=== PATIENT | female | born 1985 | race Caucasian/White ===

== ENCOUNTER 2018-12-27 17:13 | Outpatient (CLI) | payer MEDICAID ==
[~2018-12-27] VITALS: Ht 157.5 cm; Wt 85.2 kg
[2018-12-27 17:28] VITALS: Ht 157.5 cm; Wt 85.2 kg
--- NOTE | 2018-12-27 18:07 | PN ---
Triage Information Date/Time Reason for visit: Weeks of Gestation 39.1 /Para 1 Assessment/Plan Subjective: 33 year-old G1 at 39.1 weeks gestation presents with complaints of cough/congestion/sore throat/body aches x2 days. Positive sick contacts. Fever noted last p.m. Has not been taking Tylenol. Objective: Vitals: Stable and within normal limits General: No apparent distress HEENT: No erythema, ears nontender to palpation Abdomen: Gravid Pulmonary: Auscultation bilaterally Cardiac: Rate and rhythm Extremities: nontender to palpation Electronic moniter: Category 1 [place] no contractions Assessment/Plan: 1. Possible URI-patient counseled on humidifier, Tylenol, gargling with salt water. This is likely a viral infection. She was advised that in the emergency room she will will be valuated further including a culture of the throat to rule out strep. Disposition: discharge to ER for work up RIC HOFFMAN MD Dec 27, 2018 18:07
--- NOTE | 2018-12-27 18:07 | TRIAGE ---
OB Triage Datetime Report Generated by CPN: 12/27/2018 18:06 Datetime: 12/27/2018 18:04 Stage of : OB Triage Maternal Assessment Level of Consciousness: Keenly Alert, Responsive DTR's/Clonus: DTRs 1+ Headache: Denies Breath Sounds, Left: Clear and Equal Breath Sounds, Right: Clear and Equal Nausea/Vomiting: Denies RUQ Epigastric Pain: Denies Labor Evaluation Frequency: NONE Monitor Mode: External Resting Tone [place]: Relaxed Heart Rate FHR Baseline Rate: 150 Monitor Mode: External US Variability: Moderate 6-25 bpm Accelerations: 15X15 Decelerations: None Category: Category I Pain Assessment Pain Scale: 5 Pain Presence: Constant Pain Type: Ache Pain Goal: 3 Membrane Status: Intact Datetime: 12/27/2018 17:34 Vaginal Exam Dilatation (cms): 1.0 Effacement (%): 50 Station: -3 Exam By: krystyna gonzales Vaginal Bleeding: None Cervix, Consistency: Soft Cervix, Position: Midposition Presentation 'A': Cephalic Datetime: 12/27/2018 17:30 Maternal Assessment Level of Consciousness: Keenly Alert, Responsive DTR's/Clonus: DTRs 1+ Headache: Denies Blurred Vision: No Respiratory Effort: Unlabored Breath Sounds, Left: Clear and Equal Breath Sounds, Right: Clear and Equal Nausea/Vomiting: Denies RUQ Epigastric Pain: Denies Facial Edema: None Labor Evaluation Frequency: NONE Monitor Mode: External Resting Tone [place]: Relaxed Heart Rate FHR Baseline Rate: 150 Monitor Mode: External US Variability: Moderate 6-25 bpm Accelerations: 15X15 Decelerations: None Category: Category I Pain Assessment Pain Scale: 5 Pain Presence: Constant Pain Type: Ache Pain Goal: 3 Pain Assessment Comments: BODY ACHE Membrane Status: Intact Datetime: 12/27/2018 17:27 EGA: 39.1 Datetime: 12/27/2018 17:25 Assessment Type: Triage Maternal Assessment Level of Consciousness: Keenly Alert, Responsive DTR's/Clonus: DTRs 2+; No Clonus Headache: Denies Blurred Vision: No Respiratory Effort: Unlabored; Regular Rhythm; Equal Expansion Breath Sounds, Left: Clear and Equal Breath Sounds, Right: Clear and Equal Nausea/Vomiting: Denies RUQ Epigastric Pain: Denies Lower Extremities Edema: None Degree: None Upper Extremities Edema: None Degree: None Facial Edema: None Fall Risk Assessment History of Falling: (0) No Secondary Diagnosis: (0) No Ambulatory Aid: (0) Bedrest/Nurse Assist IV Therapy: (0) No Gait: (0) Normal/Bedrest/Immobile Mental Status: (0) Oriented to Own Ability Fall Score: 0 Fall Risk Score Definition: No Risk: No action required Datetime: 12/27/2018 17:21 Stage of : OB Triage Datetime: 12/27/2018 17:07 Time of Arrival: 12/27/2018 17:07 Arrived By: Ambulatory Arrived From: Home Chief Complaint: pt came in c/o uc's and a cold since 1300 Movement: Present Contractions: Irregular Rupture of Membranes: Denies Vaginal Discharge: Denies Recent Sexual Intercouse: Denies Abdominal Trauma: Not Applicable Additional Patient Complaints: none Time Provider Notified: 12/27/2018 17:30 Provider Notified: kari Initial Plan: monitor and ve
== END 2018-12-27 18:10 | disposition home or self-care (01) ==
LOC: OBT 17:13 → L-D 17:15 → OBT 18:10
PROVIDERS: ATTEND Specialist
DX: O99.513 Diseases of the respiratory system complicating pregnancy, third trimester (principal); J02.9 Acute pharyngitis, unspecified; Z3A.39 39 weeks gestation of pregnancy
CPT/HCPCS: G0463